=== PATIENT | male | born 1950 | race Caucasian/White ===

== ENCOUNTER → 2018-07-06 | Day surgery (SDC) | payer MEDICARE ==
[2018-07-01 13:32] LABS: BASOPHILS # (AUTO) 0.1 (0.0-0.1); EOSINOPHILS # (AUTO) 0.7 (0.0-0.4); EOSINOPHILS % 8.8 % (0.0-6.0); HEMATOCRIT 39.4 % (38.2-49.6); HEMOGLOBIN 12.7 g/dL (14.0-18.0); LYMPHOCYTES % 13.9 % (18.0-39.1); MEAN CORPUSCULAR HEMOGLOBIN 28.7 pg (28-32); MEAN CORPUSCULAR HGB CONC 32.2 g/dL (31-35); MEAN CORPUSCULAR VOLUME 88.9 fL (81-99); MONOCYTES # (AUTO) 0.6 (0.2-0.8); MONOCYTES % 8.3 % (4.4-11.3); NEUTROPHILS % 67.6 % (38.7-80.0); PLATELET COUNT 164 x10e3/uL (140-360); RED BLOOD COUNT 4.43 x10e6/uL (4.3-5.7); RED CELL DISTRIBUTION WIDTH 13.6 % (11.7-14.4)
[2018-07-01 13:36] LABS: INR 1.28
[2018-07-01 13:47] LABS: ALBUMIN 3.3 g/dL (3.5-5.0); ALBUMIN/GLOBULIN RATIO 0.8 (0.8-2.0); ANION GAP 13.1 mmol/L (8-16); CALCIUM 9.1 mg/dL (8.4-10.2); CREATININE, SERUM 1.5 mg/dL (0.72-1.25); POTASSIUM 4.1 mmol/L (3.5-5.1)
[2018-07-06] VITALS (11 sets, daily range): BP systolic 113–144; BP diastolic 60–83
[~2018-07-06] VITALS: Ht 170.2 cm; Wt 122.5 kg
[~2018-07-06] MED LIST: ALPRAZOLAM 0.5 MG TAB ONE; AMLODIPINE BESYL5 MG PO; ASPIRIN81 MG PO; ATROPINE SULFATE 0.1 MG/ML 10ML SYR ONE; DIPHENHYDRAMINE HCL 25 MG CAP ONE; FENTANYL CITRATE/PF 100MCG/2 ML INJ ONE; GLIMEPIRIDE4 MG PO; HEPARIN SOD (PORCINE) 1000 UNIT/ML 30ML ONE; HEPARIN SOD/SOD CHLORIDE 2,000 ML ONE; IOPAMIDOL 370 MG/ML 200 ML INFUS..BTL INJ ONE; LIDOCAINE HCL 2% LOCAL 20 ML VIAL ONE; LOSARTAN-HCTZ1 EAC2 PO; MIDAZOLAM HCL 2 MG/2 ML VIAL ONE; NITROGLYCERIN/D5W 200 MCG/ML 250 ML ONE; OMEPRAZOLE40 MG PO; SODIUM CHLORIDE 0.9% 1000ML 1,000 ML ONE; VERAPAMIL HCL 2.5 MG/ML 2 ML VIAL ONE; Z.0.ACTOS45 MG PO; Z.0.ATENOLOL100 MG PO; Z.0.HYTRIN5 MG PO; ZIAC1 UDTAB PO
--- NOTE | 2018-07-06 19:18 | Operative Report ---
DATE OF PROCEDURE: July 06, 2018 PROCEDURE PERFORMED: Cardiac catheterization. INDICATION FOR THE PROCEDURE: Shortness of breath. PRE-SEDATION ASSESSMENT: Medical history, social history, and previous experience with anesthesia were reviewed and documented in the preoperative medical record. Results of relevant diagnostic studies were reviewed. Planned choice of anesthesia, risks, complications, benefits and alternatives were discussed. Patient was deemed an appropriate candidate for moderate sedation. CONSENT: The benefits, risks, complications and alternatives of the procedure were discussed with the patient, and informed consent was obtained. MEDICATIONS: Please see nursing notes for medications administered during the procedure. PROCEDURE: Patient was brought to the cardiac catheterization laboratory in a fasting state. Right wrist was prepped and draped in a sterile fashion. One percent lidocaine was used to infiltrate the right wrist over the radial artery. A 6-Yemeni sheath was placed in the right radial artery using Seldinger technique. Coronary angiography was performed using a Jenniffer preformed diagnostic catheter to engage both the RCA and the LCA. Multiple orthogonal views were obtained of each coronary artery. Left heart catheterization was performed using the same Jenniffer catheter. All catheters were removed over a guidewire. The access site was closed using a TR band. For a right heart catheterization, initially we attempted to wire a right antecubital vein. However, this was extremely tortuous and we were unable to successfully navigate to the heart despite using a hydrophilic wire. Attempts at using the arm vein were aborted at this point, and we converted to a right femoral vein for access for a right heart cath. The right groin was already prepped and draped in a sterile fashion. One percent lidocaine was used to infiltrate the skin over the right groin. Right femoral vein was accessed using the modified Seldinger technique and a micropuncture kit. A 7-Yemeni sheath was inserted in the right femoral vein. Right heart catheterization was performed, and pressures and saturations were recorded. [place] was removed. The 7-Yemeni sheath was removed and manual pressure applied for 10 minutes to achieve adequate hemostasis. Estimated blood loss approximately 20 mL. SIGNIFICANT FINDINGS: Left main coronary artery: Large caliber, normal. LAD: Large vessel close to the apex. Three large diagonal branches. Luminal irregularities only. Left circumflex: Large codominant vessel. One large OM branch and several distal posterolateral branches. Luminal irregularities. RCA: A large vessel. Codominant RCA. Medium-sized RPDA distally and several large acute marginal branches. No significant coronary artery disease in RCA. Pressures: Aorta 129/66. LV 120/14. LVEDP 18. Right atrium . RV 67/11/19. PA 65/25/40. Pulmonary capillary wedge . COMPLICATIONS: None. SPECIMENS REMOVED: None. IMPLANTS: None. ESTIMATED BLOOD LOSS: 20 mL. RECOMMENDATIONS: 1. Usual post PCI care until TR band removal. 2. Continue optimal medical therapy and risk factor control. 3. Evaluation for sleep apnea as an outpatient and treatment as recommended. 4. Call the office and follow up in 2 weeks post procedure. Thank you for this consult. Will continue to follow. Job#: [id number]
== END | disposition home or self-care (01) ==
LOC: CATH LAB 07-02 08:19
PROVIDERS: ATTEND Internal Medicine Interventional Cardiology
DX: I25.10 Atherosclerotic heart disease of native coronary artery without angina pectoris (principal); I87.8 Other specified disorders of veins; Z91.040 Latex allergy status; Z01.812 Encounter for preprocedural laboratory examination; Z79.82 Long term (current) use of aspirin; Z79.84 Long term (current) use of oral hypoglycemic drugs
CPT/HCPCS: 36415; 80053; 80061; 85025; 85610; 93460; C1766; J1644; J2001; J2250; J7030; Q9967

== ENCOUNTER 2018-11-02 17:38 | Emergency (ER) | payer BC, MEDICARE ==
[~2018-11-02] VITALS: Ht 170.2 cm; Wt 122.5 kg
[~2018-11-02 17:38] MED LIST changes: -ALPRAZOLAM 0.5 MG TAB ONE; -ATROPINE SULFATE 0.1 MG/ML 10ML SYR ONE; -DIPHENHYDRAMINE HCL 25 MG CAP ONE; -FENTANYL CITRATE/PF 100MCG/2 ML INJ ONE; -HEPARIN SOD (PORCINE) 1000 UNIT/ML 30ML ONE; -HEPARIN SOD/SOD CHLORIDE 2,000 ML ONE; -IOPAMIDOL 370 MG/ML 200 ML INFUS..BTL INJ ONE; -LIDOCAINE HCL 2% LOCAL 20 ML VIAL ONE; -MIDAZOLAM HCL 2 MG/2 ML VIAL ONE; -NITROGLYCERIN/D5W 200 MCG/ML 250 ML ONE; -SODIUM CHLORIDE 0.9% 1000ML 1,000 ML ONE; -VERAPAMIL HCL 2.5 MG/ML 2 ML VIAL ONE
[2018-11-02] MEDS ORDERED: ALBUTEROL SULF 0.083% NEB SOLN 3 ML NEB NEB STA (17:59)
[2018-11-02] MEDS ORDERED: IPRATROPIUM BROMIDE 0.02% 2.5 ML NEB NEB STA (17:59)
[2018-11-02] MEDS ORDERED: ACETAMINOPHEN/CODEINE ELIX 120-12 MG/5 ML UDC NG ONE (18:00)
[2018-11-02] MEDS ORDERED: METHYLPREDNISOLONE SOD SUCC 125 MG/2ML VIAL IV NR (18:15)
[2018-11-02 18:24] LABS: BASOPHILS % 0.2 % (0.0-1.0); EOSINOPHILS # (AUTO) 0.1 (0.0-0.4); EOSINOPHILS % 1.4 % (0.0-6.0); HEMATOCRIT 38.7 % (38.2-49.6); HEMOGLOBIN 12.4 g/dL (14.0-18.0); LYMPHOCYTES # (AUTO) 1.4 (1.0-3.2); LYMPHOCYTES % 13.5 % (18.0-39.1); MEAN CORPUSCULAR HEMOGLOBIN 28.8 pg (28-32); MEAN CORPUSCULAR VOLUME 89.8 fL (81-99); MONOCYTES # (AUTO) 0.9 (0.2-0.8); MONOCYTES % 9.2 % (4.4-11.3); NEUTROPHILS # (AUTO) 7.7 (2.1-6.9); NEUTROPHILS % 74.9 % (38.7-80.0); PLATELET COUNT 236 x10e3/uL (140-360); RED BLOOD COUNT 4.31 x10e6/uL (4.3-5.7); RED CELL DISTRIBUTION WIDTH 13.3 % (11.7-14.4)
[2018-11-02 18:38] LABS: ALBUMIN 3.3 g/dL (3.5-5.0); ALBUMIN/GLOBULIN RATIO 0.9 (0.8-2.0); ANION GAP 14.9 mmol/L (8-16); CALCIUM 8.8 mg/dL (8.4-10.2); CREATININE, SERUM 1.48 mg/dL (0.72-1.25); POTASSIUM 3.9 mmol/L (3.5-5.1)
--- NOTE | 2018-11-02 19:23 | Diagnostic Imaging Report ---
EXAMINATION: CHEST 2 VIEWS INDICATION: Coughing. COMPARISON: 06/28/2014. FINDINGS: TUBES and LINES: None. LUNGS: Mild prominence of the pulmonary vasculature bilaterally. There is no evidence of pneumonia or pulmonary edema. PLEURA: No pleural effusion or pneumothorax. HEART AND MEDIASTINUM: The cardiac silhouette is mildly enlarged. Consultation of the aortic arch. BONES AND SOFT TISSUES: No acute osseous lesion. Soft tissues are unremarkable. UPPER ABDOMEN: No free air under the diaphragm. IMPRESSION: Mild bilateral pulmonary venous congestion. Signed by: Dr. Sina Gaines M.D. on 11/02/2018 7:20 PM
[2018-11-02 21:26] VITALS: BP 132/61
== END 2018-11-02 21:36 | disposition home or self-care (01) ==
LOC: ER 17:38
DX: R06.00 Dyspnea, unspecified (principal); I10 Essential (primary) hypertension; E11.9 Type 2 diabetes mellitus without complications; Z79.84 Long term (current) use of oral hypoglycemic drugs; K21.9 Gastro-esophageal reflux disease without esophagitis; Z79.82 Long term (current) use of aspirin
CPT/HCPCS: 36415; 71046; 80053; 83880; 85025; 85379; 99283; J2930

== ENCOUNTER → 2019-10-18 | Outpatient (CLI) | payer MEDICARE ==
--- NOTE | 2019-10-18 14:09 | Diagnostic Imaging Report ---
CT of the chest, without contrast, 10/18/2019. History: Dyspnea on exertion. Comparison: No chest CT comparisons available for review. Technique: Multidetector CT scanning of the chest was performed from the level of the thoracic inlet to the upper abdomen without IV or oral contrast. Dose reduction: The examination was performed according to departmental dose-optimization program which includes automated exposure control, adjustment of the mA and/or kV according to patient size and/or use of iterative reconstruction technique. Findings: Evaluation of the heart and mediastinal structures is limited secondary to lack of intravenous contrast. There is no axillary or hilar lymphadenopathy. Subcentimeter mediastinal lymph nodes present which are not enlarged by CT criteria. In the left anterior mediastinum there is a 3.4 x 4.8 cm homogeneous mass which appears to extend from the inferior pole of the left lobe of the thyroid. The heart is within normal limits of size. A trace pericardial effusion is present. The thoracic aorta is of normal course and caliber. The trachea and central airways are clear. A 10 mm groundglass nodule is identified in the left lower lobe on axial 112. There is no focal consolidation. No pleural effusion or pneumothorax is identified. Limited evaluation of the upper abdomen demonstrates no focal hepatic lesions visualized portions of the liver. The spleen is within normal limits. The bilateral adrenal glands are unremarkable. There are no acute osseous abnormalities. IMPRESSION: 1. 3.4 x 4.8 cm anterior mediastinal mass which appears to extend from the left lower pole of the thyroid. Further evaluation can be performed with thyroid ultrasound. 2. 10 mm groundglass nodule in the left lower lobe. Recommend CT at 6 months to confirm persistence and every 2 years until 5 years is stable. 3. Trace pericardial effusion. Signed by: Edward Camara MD on 10/18/2019 2:06 PM
== END ==
LOC: CT 12:09
PROVIDERS: ATTEND Internal Medicine
DX: R06.09 Other forms of dyspnea (principal)
CPT/HCPCS: 71250

== ENCOUNTER → 2019-11-08 | Outpatient (CLI) | payer MEDICARE ==
[~2019-11-08] MED LIST changes: +ALBUTEROL SULF 0.083% NEB SOLN 3 ML NEB ONE
== END ==
LOC: RESP 13:42
PROVIDERS: ATTEND Internal Medicine
DX: R06.09 Other forms of dyspnea (principal)
CPT/HCPCS: 94060; 94640; 94727; 94729

== ENCOUNTER → 2020-02-13 | Outpatient (CLI) | payer MEDICARE ==
[~2020-02-13] MED LIST changes: -ALBUTEROL SULF 0.083% NEB SOLN 3 ML NEB ONE
--- NOTE | 2020-02-14 13:35 | Diagnostic Imaging Report ---
Thyroid Scan with Multiple Uptakes Reason for exam: 69 M with multinodular goiter. History of resection of a left neck mass about 20 years ago per patient report but does no recall details. Per patient, recent thyroid function tests were normal. Radiopharmaceutical: I-123 Darlene 0.3 mCi Report: After oral administration of I-123 Darlene, the 6-hour thyroid uptake of iodine is 13% (normal 4-14%) and the 24-hour thyroid uptake of iodine is 23% (normal 10-25%). Images of the thyroid was obtained in the anterior and anterior oblique projections. The thyroid is normal in size to mildly enlarged. The thyroid lobes appear symmetric in size. There is homogeneous distribution of tracer activity throughout both lobes. No discrete focal areas of increased or decreased tracer activity are identified within the thyroid lobes or isthmus. The thyroid is in a normal anatomic location. A pyramidal lobe is not seen. There is no aberrant functioning thyroid tissue seen in the area scanned. Impression: Normal thyroid uptake of iodine. Simple goiter. No discrete thyroid nodules. No scan evidence to suggest a partial thyroidectomy. Signed by: Dr. Elle Mcallister M.D. on 02/14/2020 1:31 PM
== END ==
LOC: NM 07:49
PROVIDERS: ATTEND Internal Medicine Pulmonary Disease
DX: E04.2 Nontoxic multinodular goiter (principal)
CPT/HCPCS: 78014; A9516

== ENCOUNTER → 2020-04-19 | Outpatient (CLI) | payer MEDICARE ==
--- NOTE | 2020-04-19 12:26 | Diagnostic Imaging Report ---
CT of the chest. Comparison: CT chest 10/18/2019. Thyroid scan 02/13/2020 Clinical History: Left lower lung nodule follow-up Technique: Helical CT scan of the chest was performed from just above the thoracic inlet through the adrenal glands. Intravenous contrast administration was not utilized. Coronal and sagittal reconstructions were generated from the raw data. Multiple images were submitted for interpretation. This exam was performed according to our departmental dose-optimization program which includes automated exposure control, adjustment of the mA and/or kV according to patient size Discussion: Lung lechuga: Minimal mosaic pattern. The previously described groundglass left lower lobe nodular opacity is identified at slice #[id number] on axial images. It measures 9 mm across, previously 10.5 mm across. It appears to be undergoing resolution echograms of both size and opacity. No other significant abnormalities are visualized in the lung lechuga. There is minimal dependent atelectasis. Central airways: Unremarkable Pleural spaces and pleura: Unremarkable Pulmonary laina: Normal Mediastinum: Unremarkable Cardiac chambers and pericardium: Cardiomegaly. Unchanged pericardial effusion. Coronary artery calcification. Systemic great vessels: Patchy atherosclerotic calcification. Central pulmonary vessels: Unremarkable Thyroid: Unremarkable on the current exam. The previously described thyroid associated mass is not seen on this exam. It wasn't visualized on the previous exam either. The patient does have a slightly enlarged thyroid gland with the left lobe being larger than the right and causing a bulge in the contour inferiorly. Lymph nodes: No pathologic lymphadenopathy Azygos vein: Unremarkable The esophagus: Normal. Thoracic duct: Unremarkable Osseous structures: Degenerative changes Upper abdomen: Unremarkable Body wall: Unremarkable Breasts: Unremarkable Axilla: Unremarkable Lower neck: Unremarkable. Impression: The previously seen left lower lobe posterior segment lung nodule appears to be shrinking and resolving in density. CT follow-up may be done in 6 months to document complete resolution. Signed by: Christopher Rice MD on 04/19/2020 12:23 PM
== END ==
LOC: CT 10:39
PROVIDERS: ATTEND Internal Medicine
DX: R91.1 Solitary pulmonary nodule (principal)
CPT/HCPCS: 71250

== ENCOUNTER → 2020-09-11 | Outpatient (CLI) | payer MEDICARE ==
[~2020-09-11] MED LIST changes: +FUROSEMIDE20 MG PO
== END ==
LOC: CT 11:18
PROVIDERS: ATTEND Internal Medicine
DX: R91.1 Solitary pulmonary nodule (principal)
CPT/HCPCS: 71250

== ENCOUNTER 2020-10-03 20:20 | Observation (INO) | payer BC, MEDICARE ==
[~2020-10-03] VITALS: Ht 170.2 cm; Wt 127.0 kg
[~2020-10-03 20:20] MED LIST changes: -FUROSEMIDE20 MG PO
[2020-10-03] MEDS ORDERED: TETANUS/DIPHTHERIA TOX ADULT 0.5 ML SYR IM ONE (21:15)
[2020-10-03 21:38] LABS: BASOPHILS # (AUTO) 0.1 (0.0-0.1); BASOPHILS % 0.6 % (0.0-1.0); EOSINOPHILS # (AUTO) 0.3 (0.0-0.4); EOSINOPHILS % 3.9 % (0.0-6.0); HEMATOCRIT 36.7 % (38.2-49.6); HEMOGLOBIN 11.4 g/dL (14.0-18.0); LYMPHOCYTES % 12.5 % (18.0-39.1); MEAN CORPUSCULAR HEMOGLOBIN 28.7 pg (28-32); MEAN CORPUSCULAR HGB CONC 31.1 g/dL (31-35); MEAN CORPUSCULAR VOLUME 92.4 fL (81-99); MONOCYTES # (AUTO) 0.7 (0.2-0.8); MONOCYTES % 8.3 % (4.4-11.3); NEUTROPHILS # (AUTO) 6.1 (2.1-6.9); NEUTROPHILS % 74.2 % (38.7-80.0); PLATELET COUNT 140 x10e3/uL (140-360); RED BLOOD COUNT 3.97 x10e6/uL (4.3-5.7); RED CELL DISTRIBUTION WIDTH 13.6 % (11.7-14.4)
[2020-10-03 21:47] LABS: INR 1.23; PROTHROMBIN TIME 16.1 seconds (11.9-14.5)
[2020-10-03 21:54] LABS: ALBUMIN 3.4 g/dL (3.5-5.0); ANION GAP 13.7 mmol/L (8-16); CALCIUM 8.5 mg/dL (8.4-10.2); CREATININE, SERUM 1.77 mg/dL (0.72-1.25); POTASSIUM 4.7 mmol/L (3.5-5.1)
[2020-10-03 22:48] VITALS: BP 133/93
[2020-10-03 23:10] VITALS: BP 133/93
[2020-10-03 23:15] VITALS: BP 133/93
[2020-10-03] MEDS: ACETAMINOPHEN 325 MG TAB PO PRN (23:48)
[2020-10-04] VITALS (9 sets, daily range): BP systolic 101–140; BP diastolic 67–88
[2020-10-04] MEDS ORDERED: FUROSEMIDE20 MG PO (01:40)
[2020-10-04] MEDS ORDERED: TERAZOSIN HCL 5 MG CAP PO SCH ×3 (06:00→21:00)
[2020-10-04] MEDS ORDERED: PIOGLITAZONE HCL 45 MG TAB PO SCH (06:00)
[2020-10-04 06:02] LABS: BASOPHILS % 0.5 % (0.0-1.0); EOSINOPHILS # (AUTO) 0.4 (0.0-0.4); EOSINOPHILS % 5.3 % (0.0-6.0); HEMOGLOBIN 11.8 g/dL (14.0-18.0); LYMPHOCYTES # (AUTO) 1.1 (1.0-3.2); LYMPHOCYTES % 14.6 % (18.0-39.1); MEAN CORPUSCULAR HEMOGLOBIN 29.2 pg (28-32); MEAN CORPUSCULAR HGB CONC 31.9 g/dL (31-35); MEAN CORPUSCULAR VOLUME 91.6 fL (81-99); MONOCYTES # (AUTO) 0.7 (0.2-0.8); MONOCYTES % 9.8 % (4.4-11.3); NEUTROPHILS # (AUTO) 5.2 (2.1-6.9); NEUTROPHILS % 69.4 % (38.7-80.0); PLATELET COUNT 142 x10e3/uL (140-360); RED BLOOD COUNT 4.04 x10e6/uL (4.3-5.7); RED CELL DISTRIBUTION WIDTH 13.5 % (11.7-14.4)
[2020-10-04 06:18] LABS: ANION GAP 14.2 mmol/L (8-16); CALCIUM 8.7 mg/dL (8.4-10.2); CREATININE, SERUM 1.65 mg/dL (0.72-1.25); POTASSIUM 4.2 mmol/L (3.5-5.1)
[2020-10-04] MEDS: ATENOLOL 100 MG TAB PO SCH (06:30)
[2020-10-04] MEDS: PIOGLITAZONE HCL 15 MG TAB PO SCH (08:37)
[2020-10-04] MEDS: GLIMEPIRIDE 2 MG TAB PO SCH (08:37)
[2020-10-04] MEDS: FUROSEMIDE 20 MG TAB PO SCH (08:37)
[2020-10-04] MEDS: AMLODIPINE BESYLATE 5 MG TAB PO SCH (08:38)
[2020-10-04] MEDS: VALACYCLOVIR HCL 500 MG TAB PO SCH ×2 (08:39→16:58)
[2020-10-04] MEDS: PANTOPRAZOLE SOD 40 MG TABEC PO SCH (08:39)
[2020-10-04] MEDS ORDERED: ASPIRIN 81 MG CHEW TAB PO SCH (09:00)
[2020-10-04] MEDS: APIXABAN 5 MG TABLET PO SCH ×2 (09:44→16:58)
[2020-10-04] MEDS: ACETAMINOPHEN 325 MG TAB PO PRN (21:30)
[2020-10-05] VITALS: BP 109/60
[2020-10-05 04:00] VITALS: BP 121/59
[2020-10-05] MEDS: ATENOLOL 100 MG TAB PO SCH (06:06)
[2020-10-05 08:47] VITALS: BP 153/83
[2020-10-05 08:52] VITALS: BP 153/83
[2020-10-05] MEDS: FUROSEMIDE 20 MG TAB PO SCH (09:00)
[2020-10-05] MEDS: APIXABAN 5 MG TABLET PO SCH (09:38)
[2020-10-05] MEDS: PIOGLITAZONE HCL 15 MG TAB PO SCH (09:38)
[2020-10-05] MEDS: GLIMEPIRIDE 2 MG TAB PO SCH (09:38)
[2020-10-05] MEDS: PANTOPRAZOLE SOD 40 MG TABEC PO SCH (09:38)
[2020-10-05] MEDS: AMLODIPINE BESYLATE 5 MG TAB PO SCH (09:38)
[2020-10-05] MEDS: VALACYCLOVIR HCL 500 MG TAB PO SCH (09:38)
[2020-10-05 12:01] VITALS: BP 149/80
== END 2020-10-05 13:49 | disposition home or self-care (01) ==
LOC: ER 21:23 → ERHOLD 22:26 → MED/SURG2 22:50
PROVIDERS: ADMIT Internal Medicine; ATTEND Internal Medicine
DX: I48.91 Unspecified atrial fibrillation (principal); S41.111A Laceration without foreign body of right upper arm, initial encounter; W18.39XA Other fall on same level, initial encounter; Y93.89 Activity, other specified; B02.9 Zoster without complications; Z91.040 Latex allergy status; E11.22 Type 2 diabetes mellitus with diabetic chronic kidney disease; I12.9 Hypertensive chronic kidney disease with stage 1 through stage 4 chronic kidney disease, or unspecified chronic kidney disease; N18.30 Chronic kidney disease, stage 3 unspecified; Z82.49 Family history of ischemic heart disease and other diseases of the circulatory system; G47.33 Obstructive sleep apnea (adult) (pediatric); D64.9 Anemia, unspecified; E66.01 Morbid (severe) obesity due to excess calories; Z68.41 Body mass index [BMI] 40.0-44.9, adult; N40.0 Benign prostatic hyperplasia without lower urinary tract symptoms; Z20.828 Contact with and (suspected) exposure to other viral communicable diseases; Z79.84 Long term (current) use of oral hypoglycemic drugs
CPT/HCPCS: 36415 ×3; 71101; 80048; 80053; 82948 ×2; 83880; 84484; 85025 ×2; 85610; 85730; 90471; 90714; 93005; 93306; 94660 ×3; 99284; G0378 ×3; S0164 ×2; U0002

== ENCOUNTER → 2020-12-12 | Day surgery (SDC) | payer MEDICARE ==
[2020-12-07 09:57] LABS: BASOPHILS # (AUTO) 0.1 (0.0-0.1); BASOPHILS % 0.7 % (0.0-1.0); EOSINOPHILS # (AUTO) 0.3 (0.0-0.4); EOSINOPHILS % 4.2 % (0.0-6.0); HEMATOCRIT 40.9 % (38.2-49.6); HEMOGLOBIN 12.8 g/dL (14.0-18.0); LYMPHOCYTES # (AUTO) 0.7 (1.0-3.2); LYMPHOCYTES % 9.7 % (18.0-39.1); MEAN CORPUSCULAR HEMOGLOBIN 28.7 pg (28-32); MEAN CORPUSCULAR HGB CONC 31.3 g/dL (31-35); MEAN CORPUSCULAR VOLUME 91.7 fL (81-99); MONOCYTES # (AUTO) 0.6 (0.2-0.8); MONOCYTES % 8.4 % (4.4-11.3); NEUTROPHILS # (AUTO) 5.8 (2.1-6.9); NEUTROPHILS % 76.6 % (38.7-80.0); PLATELET COUNT 131 x10e3/uL (140-360); RED BLOOD COUNT 4.46 x10e6/uL (4.3-5.7); RED CELL DISTRIBUTION WIDTH 14.2 % (11.7-14.4)
[2020-12-07 10:22] LABS: ALBUMIN 3.4 g/dL (3.5-5.0); ALBUMIN/GLOBULIN RATIO 0.9 (0.8-2.0); ANION GAP 15.2 mmol/L (8-16); CALCIUM 8.6 mg/dL (8.4-10.2); CHOL/HDL RATIO 3.8 (3.9-4.7); CREATININE, SERUM 1.55 mg/dL (0.72-1.25); POTASSIUM 4.2 mmol/L (3.5-5.1)
[2020-12-07 10:43] LABS: THYROID STIMULATING HORMONE 2.112 uIU/mL (0.350-4.940)
[2020-12-07 12:27] LABS: INR 1.51; PARTIAL THROMBOPLASTIN TIME 36.9 seconds (23.8-35.5); PROTHROMBIN TIME 19.2 seconds (11.9-14.5)
[2020-12-07 12:55] LABS: EOSINOPHILS % (MANUAL) 5 % (0-7); LYMPHOCYTES % (MANUAL) 4 % (19-48); MONOCYTES % (MANUAL) 7 % (3.4-9.0); NEUTROPHILS % (MANUAL) 79 % (40-74)
[2020-12-07 12:56] LABS: PLATELET ESTIMATE SLIGHTLY DECREASED; RBC MORPHOLOGY COMMENT NORMAL
[~2020-12-12] VITALS: Ht 170.2 cm; Wt 123.8 kg
[~2020-12-12] MED LIST changes: +ELIQUIS2.5 MG; +FUROSEMIDE20 MG PO; +SODIUM CHLORIDE 0.9% 1000ML 1,000 ML ONE
[2020-12-12 10:13] VITALS: BP 104/60
[2020-12-12 10:15] VITALS: BP 89/72
[2020-12-12 10:20] VITALS: BP 111/72
[2020-12-12 10:30] VITALS: BP 102/89
[2020-12-12 10:45] VITALS: BP 102/68
[2020-12-12 11:00] VITALS: BP 136/77
== END | disposition home or self-care (01) ==
LOC: OR 07:10
PROVIDERS: ATTEND Internal Medicine
DX: I48.11 Longstanding persistent atrial fibrillation (principal); G47.33 Obstructive sleep apnea (adult) (pediatric); I11.0 Hypertensive heart disease with heart failure; I50.41 Acute combined systolic (congestive) and diastolic (congestive) heart failure; R00.2 Palpitations; R53.82 Chronic fatigue, unspecified; E11.9 Type 2 diabetes mellitus without complications; K21.9 Gastro-esophageal reflux disease without esophagitis; E66.01 Morbid (severe) obesity due to excess calories; Z91.040 Latex allergy status; Z01.812 Encounter for preprocedural laboratory examination; Z20.822 Contact with and (suspected) exposure to COVID-19; Z79.02 Long term (current) use of antithrombotics/antiplatelets; Z79.84 Long term (current) use of oral hypoglycemic drugs; Z82.3 Family history of stroke
CPT/HCPCS: 36415; 80053; 80061; 82948; 83036; 84152; 84443; 85025; 85610; 85730; 93307; 93312; 93320; 93325; J7030; U0002

== ENCOUNTER 2020-12-22 20:19 | Inpatient (IN) | payer BC, MEDICARE ==
[~2020-12-22] VITALS: Ht 157.5 cm; Wt 124.9 kg
[~2020-12-22 20:19] MED LIST changes: -SODIUM CHLORIDE 0.9% 1000ML 1,000 ML ONE
[2020-12-22 21:26] LABS: BASOPHILS % 0.2 % (0.0-1.0); EOSINOPHILS # (AUTO) 0.1 (0.0-0.4); EOSINOPHILS % 1.6 % (0.0-6.0); HEMATOCRIT 37.4 % (38.2-49.6); HEMOGLOBIN 11.7 g/dL (14.0-18.0); LYMPHOCYTES # (AUTO) 0.2 (1.0-3.2); LYMPHOCYTES % 4.2 % (18.0-39.1); MEAN CORPUSCULAR HEMOGLOBIN 28.5 pg (28-32); MEAN CORPUSCULAR HGB CONC 31.3 g/dL (31-35); MONOCYTES % 0.5 % (4.4-11.3); NEUTROPHILS % 93.3 % (38.7-80.0); PLATELET COUNT 149 x10e3/uL (140-360); RED BLOOD COUNT 4.11 x10e6/uL (4.3-5.7); RED CELL DISTRIBUTION WIDTH 14.4 % (11.7-14.4)
[2020-12-22] MEDS ORDERED: ACETAMINOPHEN 325 MG TAB ONE (21:28)
[2020-12-22] MEDS ORDERED: ACETAMINOPHEN 325 MG TAB PO ONE (21:30)
[2020-12-22 21:43] LABS: ALBUMIN 3.3 g/dL (3.5-5.0); ALBUMIN/GLOBULIN RATIO 0.9 (0.8-2.0); ANION GAP 15.7 mmol/L (8-16); CALCIUM 8.2 mg/dL (8.4-10.2); CREATININE, SERUM 1.46 mg/dL (0.72-1.25); POTASSIUM 3.7 mmol/L (3.5-5.1)
[2020-12-22 21:50] LABS: CREATINE KINASE MB 0.8 ng/mL (0-5.0)
[2020-12-22] MEDS ORDERED: FUROSEMIDE INJ 10 MG/ML 4 ML VIAL IV ONE (22:30)
[2020-12-23] VITALS (7 sets, daily range): BP systolic 119–132; BP diastolic 47–75
[2020-12-23 03:29] LABS: CREATINE KINASE MB 0.7 ng/mL (0-5.0)
[2020-12-23] MEDS: CEFTRIAXONE SOD 1 GM/NS 50 ML 50 ML IV SCH (05:16)
[2020-12-23] MEDS ORDERED: TERAZOSIN HCL 5 MG CAP PO SCH (06:00)
[2020-12-23] MEDS ORDERED: ATENOLOL 100 MG TAB PO SCH (06:00)
[2020-12-23] MEDS ORDERED: PIOGLITAZONE HCL 45 MG TAB PO SCH (06:00)
[2020-12-23] MEDS: GLIMEPIRIDE 2 MG TAB PO SCH (08:10)
[2020-12-23] MEDS: TERAZOSIN HCL 5 MG CAP PO SCH (08:11)
[2020-12-23] MEDS: ATENOLOL 100 MG TAB PO SCH (08:11)
[2020-12-23] MEDS: PIOGLITAZONE HCL 45 MG TAB PO SCH (08:11)
[2020-12-23] MEDS ORDERED: APIXAB 2.5 MG TABLET PO SCH (09:00)
[2020-12-23] MEDS: FUROSEMIDE INJ 10 MG/ML 4 ML VIAL IV SCH ×2 (10:19→16:59)
[2020-12-23] MEDS: PANTOPRAZOLE SOD 40 MG TABEC PO SCH (10:19)
[2020-12-23] MEDS: LOSARTAN POTASSIUM 100 MG TAB PO SCH (10:19)
[2020-12-23] MEDS: APIXAB 2.5 MG TABLET PO SCH ×2 (12:15→16:59)
[2020-12-23 12:39] LABS: CREATINE KINASE MB 0.9 ng/mL (0-5.0)
[2020-12-23] MEDS ORDERED: IOPAMIDOL 370 MG/ML 200 ML INFUS..BTL INJ ONE ×2 (12:56→16:17)
[2020-12-23] MEDS ORDERED: SODIUM CHLORIDE 0.9% 50ML 0 ML ONE (12:56)
[2020-12-23] MEDS ORDERED: SODIUM CHLORIDE 0.9% 50ML 50 ML ONE (16:16)
[2020-12-23] MEDS ORDERED: SODIUM CHLORIDE 0.9% 1000ML 1,000 ML IV ONE (16:45)
[2020-12-23 18:17] LABS: CREATINE KINASE MB 1.1 ng/mL (0-5.0)
[2020-12-23] MEDS ORDERED: ACETAMINOPHEN 325 MG TAB PO PRN (23:49)
[2020-12-24] VITALS (8 sets, daily range): BP systolic 107–143; BP diastolic 46–72
[2020-12-24] MEDS: CEFTRIAXONE SOD 1 GM/NS 50 ML 50 ML IV SCH (04:45)
[2020-12-24] MEDS: PIOGLITAZONE HCL 45 MG TAB PO SCH (05:56)
[2020-12-24] MEDS: TERAZOSIN HCL 5 MG CAP PO SCH (05:57)
[2020-12-24] MEDS: ATENOLOL 100 MG TAB PO SCH (06:00)
[2020-12-24] MEDS: LOSARTAN POTASSIUM 100 MG TAB PO SCH (08:33)
[2020-12-24] MEDS: PANTOPRAZOLE SOD 40 MG TABEC PO SCH (08:33)
[2020-12-24] MEDS: GLIMEPIRIDE 2 MG TAB PO SCH (08:33)
[2020-12-24] MEDS: APIXAB 2.5 MG TABLET PO SCH ×2 (08:33→16:24)
[2020-12-24] MEDS: FUROSEMIDE INJ 10 MG/ML 4 ML VIAL IV SCH ×2 (08:33→16:24)
[2020-12-24] MEDS: MONTELUKAST SODIUM 10 MG TAB PO SCH (13:51)
[2020-12-24 18:41] LABS: ANION GAP 15.1 mmol/L (8-16); CREATININE, SERUM 1.88 mg/dL (0.72-1.25); POTASSIUM 4.1 mmol/L (3.5-5.1)
[2020-12-24] MEDS: GUAIFENESIN/DEXTROMETHORPHAN LIQD 5 ML UDC PO PRN (23:12)
[2020-12-25 00:23] VITALS: BP 136/54
[2020-12-25] MEDS: CEFTRIAXONE SOD 1 GM/NS 50 ML 50 ML IV SCH (05:00)
[2020-12-25 05:20] VITALS: BP 141/66
[2020-12-25 05:35] LABS: BASOPHILS % 0.5 % (0.0-1.0); EOSINOPHILS # (AUTO) 0.3 (0.0-0.4); EOSINOPHILS % 3.7 % (0.0-6.0); HEMATOCRIT 34.5 % (38.2-49.6); HEMOGLOBIN 11.2 g/dL (14.0-18.0); LYMPHOCYTES # (AUTO) 0.8 (1.0-3.2); MEAN CORPUSCULAR HEMOGLOBIN 29.2 pg (28-32); MEAN CORPUSCULAR HGB CONC 32.5 g/dL (31-35); MEAN CORPUSCULAR VOLUME 90.1 fL (81-99); MONOCYTES # (AUTO) 0.7 (0.2-0.8); MONOCYTES % 7.7 % (4.4-11.3); NEUTROPHILS # (AUTO) 6.7 (2.1-6.9); NEUTROPHILS % 78.6 % (38.7-80.0); PLATELET COUNT 152 x10e3/uL (140-360); RED BLOOD COUNT 3.83 x10e6/uL (4.3-5.7); RED CELL DISTRIBUTION WIDTH 14.5 % (11.7-14.4)
[2020-12-25] MEDS: GUAIFENESIN/DEXTROMETHORPHAN LIQD 5 ML UDC PO PRN (05:36)
[2020-12-25] MEDS: TERAZOSIN HCL 5 MG CAP PO SCH (06:00)
[2020-12-25 06:03] LABS: ALBUMIN 2.9 g/dL (3.5-5.0); ALBUMIN/GLOBULIN RATIO 0.8 (0.8-2.0); ANION GAP 14.5 mmol/L (8-16); CALCIUM 8.3 mg/dL (8.4-10.2); CREATININE, SERUM 1.65 mg/dL (0.72-1.25); MAGNESIUM 1.4 MG/DL (1.3-2.1); POTASSIUM 3.5 mmol/L (3.5-5.1)
[2020-12-25] MEDS: PIOGLITAZONE HCL 45 MG TAB PO SCH (06:36)
[2020-12-25] MEDS: ATENOLOL 100 MG TAB PO SCH (06:37)
[2020-12-25 07:59] VITALS: BP 109/58
[2020-12-25] MEDS: MONTELUKAST SODIUM 10 MG TAB PO SCH (08:15)
[2020-12-25] MEDS: APIXAB 2.5 MG TABLET PO SCH (08:15)
[2020-12-25] MEDS: PANTOPRAZOLE SOD 40 MG TABEC PO SCH (08:15)
[2020-12-25] MEDS: FUROSEMIDE INJ 10 MG/ML 4 ML VIAL IV SCH (08:15)
[2020-12-25] MEDS: LOSARTAN POTASSIUM 100 MG TAB PO SCH (08:15)
[2020-12-25] MEDS: GLIMEPIRIDE 2 MG TAB PO SCH (08:15)
[2020-12-25 08:17] VITALS: BP 109/58
== END 2020-12-25 09:11 | disposition home or self-care (01) | DRG 291 ==
LOC: ER 20:27 → ERHOLD 23:38 → MED/SURG2 12-23 11:41
PROVIDERS: ADMIT Internal Medicine; ATTEND Internal Medicine
DX: I13.0 Hypertensive heart and chronic kidney disease with heart failure and stage 1 through stage 4 chronic kidney disease, or unspecified chronic kidney disease (principal); I50.23 Acute on chronic systolic (congestive) heart failure; J96.01 Acute respiratory failure with hypoxia; Z68.43 Body mass index [BMI] 50.0-59.9, adult; I27.20 Pulmonary hypertension, unspecified; N18.30 Chronic kidney disease, stage 3 unspecified; G47.33 Obstructive sleep apnea (adult) (pediatric); E78.5 Hyperlipidemia, unspecified; I48.91 Unspecified atrial fibrillation; E66.01 Morbid (severe) obesity due to excess calories; E11.22 Type 2 diabetes mellitus with diabetic chronic kidney disease; Z20.822 Contact with and (suspected) exposure to COVID-19
CPT/HCPCS: 36415; 71045; 71260; 80048; 80053; 82550; 82553; 82948; 83735; 83880; 84484; 85025; 93005; 93306; 99284; J0696; J1940; J7030; Q9967; U0002

== ENCOUNTER 2022-07-03 08:54 | Observation (INO) | payer BC, MEDICARE ==
[~2022-07-03] VITALS: Ht 157.5 cm; Wt 124.7 kg
[~2022-07-03 08:54] MED LIST changes: +SODIUM CHLORIDE FLUSH 10 ML SYR IV PRN
[2022-07-03] MEDS ORDERED: DILTIAZEM HCL 5 MG/ML 5 ML VIAL IV STA (09:06)
[2022-07-03] MEDS ORDERED: ASPIRIN 325 MG TAB PO ONE (09:15)
[2022-07-03 09:24] LABS: BASOPHILS % 0.4 % (0.0-1.0); EOSINOPHILS # (AUTO) 0.2 (0.0-0.4); EOSINOPHILS % 2.9 % (0.0-6.0); HEMATOCRIT 41.1 % (38.2-49.6); LYMPHOCYTES # (AUTO) 0.8 (1.0-3.2); LYMPHOCYTES % 10.4 % (18.0-39.1); MEAN CORPUSCULAR HGB CONC 31.6 g/dL (31-35); MEAN CORPUSCULAR VOLUME 94.7 fL (81-99); MONOCYTES # (AUTO) 0.6 (0.2-0.8); MONOCYTES % 7.9 % (4.4-11.3); NEUTROPHILS # (AUTO) 5.7 (2.1-6.9); NEUTROPHILS % 78.1 % (38.7-80.0); PLATELET COUNT 151 x10e3/uL (140-360); RED BLOOD COUNT 4.34 x10e6/uL (4.3-5.7); RED CELL DISTRIBUTION WIDTH 14.2 % (11.7-14.4)
[2022-07-03 09:38] LABS: INR 1.24; PROTHROMBIN TIME 16.7 seconds (11.9-14.5)
[2022-07-03] MEDS ORDERED: SODIUM CHLORIDE 0.9% 100 ML ONE (09:40)
[2022-07-03] MEDS ORDERED: DILTIAZEM HCL IV 5MG/ML 25 ML VIAL ONE (09:40)
[2022-07-03 09:48] LABS: ALANINE AMINOTRANSFERASE 17 IU/L (0-55); ALBUMIN 3.3 g/dL (3.5-5.0); ALBUMIN/GLOBULIN RATIO 0.8 (0.8-2.0); ALKALINE PHOSPHATASE 67 IU/L (40-150); ANION GAP 11.2 mmol/L (8-16); BLOOD UREA NITROGEN 25 mg/dL (7-26); BUN/CREATININE RATIO 16 (6-25); CALCIUM 8.1 mg/dL (8.4-10.2); CARBON DIOXIDE 27 mmol/L (22-29); CHLORIDE 103 mmol/L (98-107); CREATININE, SERUM 1.53 mg/dL (0.72-1.25); GLUCOSE 169 mg/dL (74-118); POTASSIUM 4.2 mmol/L (3.5-5.1); SODIUM 137 mmol/L (136-145)
[2022-07-03] MEDS ORDERED: DILTIAZEM HCL 125 ML IV SCH (10:00)
[2022-07-03] MEDS ORDERED: ACETAMINOPHEN 325 MG TAB PO PRN (10:30)
[2022-07-03] MEDS ORDERED: ONDANSETRON HCL INJ 2MG/ML 2ML 2 MG/ML VIAL IV PRN (10:30)
== END 2022-07-03 12:44 | disposition home or self-care (01) ==
LOC: ER 08:59 → ERHOLD 10:22
PROVIDERS: ADMIT Internal Medicine; ATTEND Internal Medicine
DX: I48.91 Unspecified atrial fibrillation (principal); K21.9 Gastro-esophageal reflux disease without esophagitis; I13.0 Hypertensive heart and chronic kidney disease with heart failure and stage 1 through stage 4 chronic kidney disease, or unspecified chronic kidney disease; I50.9 Heart failure, unspecified; N18.9 Chronic kidney disease, unspecified; E11.22 Type 2 diabetes mellitus with diabetic chronic kidney disease; Z20.822 Contact with and (suspected) exposure to COVID-19
CPT/HCPCS: 0223U; 36415; 71045; 80053; 83880; 84484; 85025; 85610; 85730; 93005; 94799; 99284; G0378; J7050

== ENCOUNTER 2023-03-05 14:36 | Inpatient (IN) | payer BC, MEDICARE ==
[~2023-03-05] VITALS: Ht 170.2 cm; Wt 110.2 kg
[~2023-03-05 14:36] MED LIST changes: -SODIUM CHLORIDE FLUSH 10 ML SYR IV PRN
[2023-03-05] MEDS ORDERED: Morphine 4mg INJECTION 4 MG/ML INJ IV STA (15:02)
[2023-03-05] MEDS ORDERED: ONDANSETRON HCL INJ 2MG/ML 2ML 2 MG/ML VIAL IV STA (15:02)
[2023-03-05 15:14] LABS: BASOPHILS % 0.2 % (0.0-1.0); EOSINOPHILS # (AUTO) 0.1 (0.0-0.4); EOSINOPHILS % 0.6 % (0.0-6.0); HEMOGLOBIN 11.9 g/dL (14.0-18.0); LYMPHOCYTES # (AUTO) 0.8 (1.0-3.2); LYMPHOCYTES % 4.6 % (18.0-39.1); MEAN CORPUSCULAR HEMOGLOBIN 29.2 pg (28-32); MEAN CORPUSCULAR HGB CONC 32.2 g/dL (31-35); MEAN CORPUSCULAR VOLUME 90.7 fL (81-99); MONOCYTES # (AUTO) 1.3 (0.2-0.8); MONOCYTES % 7.3 % (4.4-11.3); NEUTROPHILS % 86.8 % (38.7-80.0); PLATELET COUNT 146 x10e3/uL (140-360); RED BLOOD COUNT 4.08 x10e6/uL (4.3-5.7); RED CELL DISTRIBUTION WIDTH 14.3 % (11.7-14.4)
[2023-03-05 15:29] LABS: ALBUMIN 3.4 g/dL (3.5-5.0); ALBUMIN/GLOBULIN RATIO 0.9 (0.8-2.0); ANION GAP 16.7 mmol/L (8-16); CALCIUM 8.9 mg/dL (8.4-10.2); CREATININE, SERUM 1.83 mg/dL (0.72-1.25); POTASSIUM 3.7 mmol/L (3.5-5.1)
[2023-03-05 15:35] LABS: CLARITY,URINE SL CLOUDY (CLEAR); COLOR,URINE YELLOW (YELLOW)
[2023-03-05 15:36] LABS: CREATINE KINASE MB 0.5 ng/mL (0-5.0)
[2023-03-05 15:36] LABS: KETONES,URINE NEGATIVE (NEGATIVE); LEUKOCYTE ESTERASE ,URINE NEGATIVE (NEGATIVE); NITRITE,URINE NEGATIVE (NEGATIVE); PROTEIN,URINE DIPSTICK NEGATIVE (NEGATIVE); URINE UROBILINOGEN 0.2 mg/dL (0.2 - 1)
[2023-03-05] MEDS ORDERED: SODIUM CHLORIDE 0.9% 500ML 500 ML ONE (15:41)
[2023-03-05 15:42] LABS: BACTERIA,URINE FEW /HPF
[2023-03-05] MEDS ORDERED: ACETAMINOPHEN 325 MG TAB PO ONE (15:45)
[2023-03-05] MEDS ORDERED: SODIUM CHLORIDE 0.9% 500ML 500 ML IV ONE (15:45)
[2023-03-05] MEDS ORDERED: IOPAMIDOL 370 MG/ML 100 ML INFUS..BTL INJ ONE (15:47)
[2023-03-05] MEDS ORDERED: SODIUM CHLORIDE FLUSH 10 ML SYR INJ PRN (17:45)
[2023-03-05] MEDS: ONDANSETRON HCL INJ 2MG/ML 2ML 2 MG/ML VIAL IV PRN (20:25)
[2023-03-05] MEDS: Morphine 4mg INJECTION 4 MG/ML INJ IV PRN (20:26)
[2023-03-05] MEDS ORDERED: SODIUM BICARBONATE 8.4% SYRING 50 ML ONE (21:33)
[2023-03-05 21:56] VITALS: BP 126/49
[2023-03-05] MEDS ORDERED: JARDIANCE10 MG (22:21)
[2023-03-05] MEDS ORDERED: METOPROLOL TAR100 MG PO (22:21)
[2023-03-05 22:27] VITALS: BP 126/49
[2023-03-05 23:30] VITALS: BP 126/49
[2023-03-06] VITALS (10 sets, daily range): BP systolic 76–138; BP diastolic 49–66
[2023-03-06 01:44] LABS: CREATINE KINASE MB 0.5 ng/mL (0-5.0)
[2023-03-06] MEDS: ONDANSETRON HCL INJ 2MG/ML 2ML 2 MG/ML VIAL IV PRN (04:28)
[2023-03-06] MEDS: Morphine 4mg INJECTION 4 MG/ML INJ IV PRN (04:33)
[2023-03-06] MEDS ORDERED: SODIUM CHLORIDE 0.9% 250ML 250 ML ONE (04:49)
[2023-03-06] MEDS: PIOGLITAZONE HCL 45 MG TAB PO SCH (06:00)
[2023-03-06 06:03] LABS: BASOPHILS % 0.2 % (0.0-1.0); EOSINOPHILS % 0.2 % (0.0-6.0); HEMATOCRIT 35.7 % (38.2-49.6); LYMPHOCYTES # (AUTO) 1.1 (1.0-3.2); LYMPHOCYTES % 9.1 % (18.0-39.1); MEAN CORPUSCULAR HGB CONC 30.8 g/dL (31-35); MEAN CORPUSCULAR VOLUME 94.2 fL (81-99); MONOCYTES % 8.1 % (4.4-11.3); NEUTROPHILS % 82.1 % (38.7-80.0); PLATELET COUNT 131 x10e3/uL (140-360); RED BLOOD COUNT 3.79 x10e6/uL (4.3-5.7); RED CELL DISTRIBUTION WIDTH 14.4 % (11.7-14.4)
[2023-03-06 06:28] LABS: ANION GAP 14.6 mmol/L (8-16); CALCIUM 8.4 mg/dL (8.4-10.2); CREATININE, SERUM 1.9 mg/dL (0.72-1.25); POTASSIUM 3.6 mmol/L (3.5-5.1)
[2023-03-06] MEDS ORDERED: DEXTROSE 50% SYRINGE 50 ML IV STA (06:35)
[2023-03-06] MEDS ORDERED: DEXTROSE 50% SYRINGE 50 ML IV ONE ×2 (06:37→06:39)
[2023-03-06 06:52] LABS: CREATINE KINASE MB 0.4 ng/mL (0-5.0)
[2023-03-06] MEDS ORDERED: DEXTROSE 50% SYRINGE 50 ML IV PRN (07:00)
[2023-03-06] MEDS: INSULIN LISPRO 100 UNIT/1 ML 3ML VIAL SQ SCH ×4 (07:30→21:02)
[2023-03-06] MEDS ORDERED: EMPAGLIFLOZIN 10 MG TABLET PO SCH (09:00)
[2023-03-06] MEDS ORDERED: METOPROLOL TARTRATE 50 MG TAB PO SCH (09:00)
[2023-03-06] MEDS: PANTOPRAZOLE SOD 40 MG TABEC PO SCH (09:19)
[2023-03-06] MEDS: ACETAMINOPHEN 325 MG TAB PO PRN ×2 (13:18→21:53)
[2023-03-06] MEDS ORDERED: SODIUM CHLORIDE 0.9% 1000ML 1,000 ML IV ONE (15:45)
[2023-03-06] MEDS: TERAZOSIN HCL 5 MG CAP PO SCH (20:59)
[2023-03-07] VITALS (8 sets, daily range): BP systolic 89–126; BP diastolic 45–69
[2023-03-07] MEDS: PIOGLITAZONE HCL 45 MG TAB PO SCH (05:11)
[2023-03-07 05:56] LABS: BASOPHILS % 0.2 % (0.0-1.0); EOSINOPHILS # (AUTO) 0.2 (0.0-0.4); EOSINOPHILS % 1.2 % (0.0-6.0); HEMATOCRIT 35.3 % (38.2-49.6); HEMOGLOBIN 10.8 g/dL (14.0-18.0); LYMPHOCYTES # (AUTO) 1.2 (1.0-3.2); LYMPHOCYTES % 8.9 % (18.0-39.1); MEAN CORPUSCULAR HEMOGLOBIN 29.6 pg (28-32); MEAN CORPUSCULAR HGB CONC 30.6 g/dL (31-35); MEAN CORPUSCULAR VOLUME 96.7 fL (81-99); MONOCYTES # (AUTO) 1.2 (0.2-0.8); MONOCYTES % 9.2 % (4.4-11.3); NEUTROPHILS # (AUTO) 10.3 (2.1-6.9); NEUTROPHILS % 80.1 % (38.7-80.0); PLATELET COUNT 141 x10e3/uL (140-360); RED BLOOD COUNT 3.65 x10e6/uL (4.3-5.7); RED CELL DISTRIBUTION WIDTH 14.6 % (11.7-14.4)
[2023-03-07 06:42] LABS: ALBUMIN 2.6 g/dL (3.5-5.0); ANION GAP 17.9 mmol/L (8-16); CALCIUM 8.3 mg/dL (8.4-10.2); CREATININE, SERUM 2.76 mg/dL (0.72-1.25); MAGNESIUM 2.1 MG/DL (1.3-2.1); POTASSIUM 3.9 mmol/L (3.5-5.1)
[2023-03-07 06:43] LABS: ALBUMIN/GLOBULIN RATIO 0.7 (0.8-2.0)
[2023-03-07] MEDS: INSULIN LISPRO 100 UNIT/1 ML 3ML VIAL SQ SCH ×4 (07:30→20:50)
[2023-03-07] MEDS: PANTOPRAZOLE SOD 40 MG TABEC PO SCH (08:12)
[2023-03-07] MEDS: ACETAMINOPHEN 325 MG TAB PO PRN (08:17)
[2023-03-07] MEDS: Morphine 4mg INJECTION 4 MG/ML INJ IV PRN ×2 (12:14→19:23)
[2023-03-07] MEDS: TERAZOSIN HCL 5 MG CAP PO SCH (21:00)
[2023-03-08] VITALS (7 sets, daily range): BP systolic 105–141; BP diastolic 57–73
[2023-03-08] MEDS: INSULIN LISPRO 100 UNIT/1 ML 3ML VIAL SQ SCH ×4 (07:30→20:50)
[2023-03-08] MEDS: PANTOPRAZOLE SOD 40 MG TABEC PO SCH (10:31)
[2023-03-08] MEDS: ONDANSETRON HCL INJ 2MG/ML 2ML 2 MG/ML VIAL IV PRN (14:01)
[2023-03-08] MEDS: Morphine 4mg INJECTION 4 MG/ML INJ IV PRN ×2 (14:01→20:47)
[2023-03-08] MEDS: SODIUM CHLORIDE 0.9% 1000ML 1,000 ML IV SCH ×2 (16:45→23:58)
[2023-03-08] MEDS: TERAZOSIN HCL 5 MG CAP PO SCH (20:46)
[2023-03-09] VITALS (7 sets, daily range): BP systolic 109–140; BP diastolic 50–75
[2023-03-09] MEDS: SODIUM CHLORIDE 0.9% 1000ML 1,000 ML IV SCH ×2 (06:18→22:07)
[2023-03-09 06:36] LABS: BASOPHILS # (AUTO) 0.1 (0.0-0.1); BASOPHILS % 0.6 % (0.0-1.0); EOSINOPHILS # (AUTO) 0.5 (0.0-0.4); EOSINOPHILS % 5.5 % (0.0-6.0); HEMATOCRIT 30.7 % (38.2-49.6); HEMOGLOBIN 9.7 g/dL (14.0-18.0); LYMPHOCYTES # (AUTO) 0.9 (1.0-3.2); LYMPHOCYTES % 9.8 % (18.0-39.1); MEAN CORPUSCULAR HGB CONC 31.6 g/dL (31-35); MEAN CORPUSCULAR VOLUME 91.9 fL (81-99); MONOCYTES # (AUTO) 0.9 (0.2-0.8); MONOCYTES % 9.7 % (4.4-11.3); NEUTROPHILS # (AUTO) 6.5 (2.1-6.9); NEUTROPHILS % 73.7 % (38.7-80.0); PLATELET COUNT 163 x10e3/uL (140-360); RED BLOOD COUNT 3.34 x10e6/uL (4.3-5.7); RED CELL DISTRIBUTION WIDTH 14.5 % (11.7-14.4)
[2023-03-09 06:53] LABS: ALBUMIN 2.1 g/dL (3.5-5.0); ALBUMIN/GLOBULIN RATIO 0.6 (0.8-2.0); ANION GAP 17.3 mmol/L (8-16); CALCIUM 7.9 mg/dL (8.4-10.2); CREATININE, SERUM 2.97 mg/dL (0.72-1.25); POTASSIUM 4.3 mmol/L (3.5-5.1)
[2023-03-09] MEDS: INSULIN LISPRO 100 UNIT/1 ML 3ML VIAL SQ SCH ×4 (07:30→22:21)
[2023-03-09] MEDS: PANTOPRAZOLE SOD 40 MG TABEC PO SCH (09:01)
[2023-03-09] MEDS: TERAZOSIN HCL 5 MG CAP PO SCH (22:06)
[2023-03-09] MEDS: Morphine 4mg INJECTION 4 MG/ML INJ IV PRN (22:11)
[2023-03-10 01:51] VITALS: BP_SYST 128; BP_SYST 95; BP_DIAS 58
[2023-03-10 02:27] VITALS: BP 128/58
[2023-03-10] MEDS: ACETAMINOPHEN 325 MG TAB PO PRN (05:25)
[2023-03-10 06:28] VITALS: BP 128/62
[2023-03-10] MEDS: INSULIN LISPRO 100 UNIT/1 ML 3ML VIAL SQ SCH (07:30)
[2023-03-10 08:00] VITALS: BP 162/64
[2023-03-10] MEDS: SODIUM CHLORIDE 0.9% 1000ML 1,000 ML IV SCH (08:45)
[2023-03-10] MEDS: PANTOPRAZOLE SOD 40 MG TABEC PO SCH (09:22)
== END 2023-03-10 09:37 | disposition home or self-care (01) | DRG 391 ==
LOC: ER 14:44 → ERHOLD 17:43 → MED/SURG2 20:40 → OBSVTOIN 03-09 09:49
PROVIDERS: ADMIT Internal Medicine; ATTEND Internal Medicine
DX: K57.32 Diverticulitis of large intestine without perforation or abscess without bleeding (principal); I21.A1 Myocardial infarction type 2; I13.0 Hypertensive heart and chronic kidney disease with heart failure and stage 1 through stage 4 chronic kidney disease, or unspecified chronic kidney disease; N17.9 Acute kidney failure, unspecified; E11.22 Type 2 diabetes mellitus with diabetic chronic kidney disease; N18.30 Chronic kidney disease, stage 3 unspecified; I25.10 Atherosclerotic heart disease of native coronary artery without angina pectoris; K21.9 Gastro-esophageal reflux disease without esophagitis; N28.1 Cyst of kidney, acquired; K80.20 Calculus of gallbladder without cholecystitis without obstruction; I50.9 Heart failure, unspecified; I48.0 Paroxysmal atrial fibrillation; E78.5 Hyperlipidemia, unspecified; E66.9 Obesity, unspecified; E86.0 Dehydration; Z68.38 Body mass index [BMI] 38.0-38.9, adult; G47.33 Obstructive sleep apnea (adult) (pediatric); N40.0 Benign prostatic hyperplasia without lower urinary tract symptoms; Z96.659 Presence of unspecified artificial knee joint
CPT/HCPCS: 0223U; 36415; 71045; 74177; 80048; 80053; 81001; 82550; 82553; 82948; 83690; 83735; 83880; 84484; 85025; 93005; 93306; 94660; 94799; 96361; 99284; G0378; J2270; J2405; J2543; J7030; J7040; J7050; J7799; Q9967

== ENCOUNTER → 2024-06-16 | Day surgery (SDC) | payer MEDICARE ==
[2024-06-14 08:57] LABS: BASOPHILS # (AUTO) 0.1 (0.0-0.1); BASOPHILS % 0.8 % (0.0-1.0); EOSINOPHILS # (AUTO) 0.5 (0.0-0.4); EOSINOPHILS % 5.7 % (0.0-6.0); HEMATOCRIT 38.6 % (38.2-49.6); HEMOGLOBIN 12.2 g/dL (14.0-18.0); LYMPHOCYTES # (AUTO) 0.9 (1.0-3.2); LYMPHOCYTES % 11.3 % (18.0-39.1); MEAN CORPUSCULAR HGB CONC 31.6 g/dL (31-35); MEAN CORPUSCULAR VOLUME 91.9 fL (81-99); MONOCYTES # (AUTO) 0.7 (0.2-0.8); MONOCYTES % 8.8 % (4.4-11.3); NEUTROPHILS # (AUTO) 5.8 (2.1-6.9); NEUTROPHILS % 73.1 % (38.7-80.0); PLATELET COUNT 162 x10e3/uL (140-360); RED CELL DISTRIBUTION WIDTH 13.2 % (11.7-14.4); WHITE BLOOD COUNT 7.93 x10e3/uL (4.8-10.8)
[~2024-06-16] MED LIST changes: +AMLODIPINE BESY10 MG PO; +JARDIANCE10 MG; +LIDOCAINE HCL 2% LOCAL INJ 5 ML SDV VIAL INJ ONE; +METOPROLOL TAR100 MG PO; +PROPOFOL IV EMULSION 10 MG/ML 20 ML VIAL ONE
[2024-06-16] MEDS: LACTATED RINGER'S 1,000 ML ONE (08:03)
[2024-06-16 10:25] VITALS: BP 130/62; PULSE 60; RESP 17; TEMP 97.1; O2SAT 97
== END | disposition home or self-care (01) ==
LOC: OR 06:45
PROVIDERS: ATTEND Internal Medicine Gastroenterology
DX: Z09 Encounter for follow-up examination after completed treatment for conditions other than malignant neoplasm (principal); D12.5 Benign neoplasm of sigmoid colon; D17.5 Benign lipomatous neoplasm of intra-abdominal organs; K57.30 Diverticulosis of large intestine without perforation or abscess without bleeding; K64.8 Other hemorrhoids; Z71.3 Dietary counseling and surveillance; Z78.9 Other specified health status; G47.33 Obstructive sleep apnea (adult) (pediatric); D64.9 Anemia, unspecified; I48.91 Unspecified atrial fibrillation; I10 Essential (primary) hypertension; E11.9 Type 2 diabetes mellitus without complications; N20.0 Calculus of kidney; Z01.812 Encounter for preprocedural laboratory examination; Z79.84 Long term (current) use of oral hypoglycemic drugs; Z79.02 Long term (current) use of antithrombotics/antiplatelets; Z79.899 Other long term (current) drug therapy; Z68.39 Body mass index [BMI] 39.0-39.9, adult
CPT/HCPCS: 36415; 45378; 85025; 88305; 93005; J2001